=== PATIENT | female | born 1995 | race Hispanic/Latino ===

== ENCOUNTER 2018-01-03 13:13 | Inpatient (IN) | payer OTHER ==
[~2018-01-03] VITALS: Ht 170.2 cm; Wt 79.4 kg
[2018-01-03 13:50] LABS: ABSOLUTE BASOPHIL COUNT 0 /CUMM (0.0-0.2); ABSOLUTE EOSINOPHIL COUNT 0 /CUMM (0.0-0.7); ABSOLUTE GRANULOCYTE CT 11.1 /CUMM (1.4-6.5); ABSOLUTE LYMPH COUNT 1.5 /CUMM (1.2-3.4); ABSOLUTE MONOCYTE COUNT 0.6 /CUMM (0.10-0.60); BASOPHIL % 0.1 % (0.0-2.0); EOSINOPHIL % 0 % (0-5); HEMATOCRIT 35.3 % (37-47); MEAN CORPUSCULAR HGB 29.7 PG (27.0-31.0); MEAN CORPUSCULAR HGB CONC 34.2 G/DL (33.0-37.0); MEAN CORPUSCULAR VOLUME 86.9 FL (81.0-99.0); MEAN PLATELET VOLUME 8.5 FL (7.4-10.4); PLATELET COUNT 241 /CUMM (130-400); RBC DISTRIBUTION WIDTH 16.9 % (11.5-14.5); RED BLOOD CELL CT 4.06 /CUMM (4.20-5.40); WHITE BLOOD CELL COUNT 13.2 /CUMM (4.8-10.8)
[2018-01-03 13:51] VITALS: BP 137/94
--- NOTE | 2018-01-03 17:42 | History & Physical ---
General Information and HPI MD Statement: I have seen and personally examined ELIZABETH PICHARDO and documented this H&P. The patient is a 22 year old female at 41 weeks and 0 days gestation who presented with a chief complaint of Labor Pains. 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 Allergies/Medications Allergies: Coded Allergies: No Known Allergies (01/03/18) Compliance With Home Meds: GOOD Past History water analyst History : 1 Para: 0 Last Menstrual Period: 03/29/2017 Estimated Delivery Date: 12/27/2017 Past water analyst History: none Surgical History Pertinent Surgical History: none Past Family/Social History Psychosocial History Smoking Status: Never Smoked Review of Systems Review of Systems Constitutional: Reports: no symptoms. Denies: chills, fever. EENTM: Denies: blurred vision, double vision, visual changes. Cardiovascular: Denies: chest pain. Respiratory: Denies: cough. GI: Denies: nausea, vomiting. Neurological/Psychological: Denies: anxiety, depressed. Exam & Diagnostic Data Last 24 Hrs of Vital Signs/I&O vss Vital Signs Date Time Temp Pulse Resp B/P B/P Pulse O2 O2 Flow FiO2 Mean Ox Delivery Rate 01/03 1351 137/94 Intake & Output 01/03 1600 01/03 0800 05 0000 Intake Total Output Total Balance Patient 175 lb Weight Obstetric Exam Wgt Gained During : 28lbs Pelvimetry: seems adequate Dilation (cm): 5 Effacement (%): 90 Station: -2 Membranes: AROM Fluid: clear Fundal Height (cm): 38 Multiple Gestation? No Contractions: Q3-4 min Infant #1 - FHR Baseline: 144 Category: 1 Estimated Weight: 3800G Presentation: vtx Patient for Induction? No Physical Exam General Appearance Alert, Oriented X3, Cooperative, Moderate Distress Skin No Rashes HEENT Atraumatic Neck Supple Cardiovascular Regular Rate Lungs Clear to Auscultation Abdomen No Masses Neurological Normal Gait, Normal Speech Labs Blood Type & Rh: O POS Antibody Screen: neg Hct/Hgb & Platelets #1: 39.4/12.1/259 Hct/Hgb & Platelets #2: 32.6/9.9/242 Rubella: imm VDRL #1: nr VDRL #2: nr HbsAg: neg HIV #1: nr HIV #2 nr 1 Hr P Group B Strep: pos Initial Ultrasound: 09/12/17 9w 6d Anatomy Ultrasound: 08/08/2017 normal Ultrasound for EFW: 12/07/17 44%tile at 37 weeks Genetic Testing: cf negative cf DNA Normal Last 24 Hrs of Labs/Mathew: Laboratory Tests 01/03/18 1337: Urinalysis MOD H, Urine Color YEL, Urine Clarity CLDY H, Urine pH 6.0, Ur Specific [place] >= 1.030, Urine Protein 100 H, Urine Ketones >=80, Urine Nitrite NEG, Urine Bilirubin NEG, Urine Urobilinogen 0.2, Ur Leukocyte Esterase NEG, Ur Microscopic SEDIMENT EXAMINED, Urine RBC RARE, Urine WBC 5-10 H, Ur Epithelial Cells MANY H, Urine Bacteria MANY H, Urine Hemoglobin LARGE H, Urine Glucose NEG 01/03/18 1333: CBC w Diff NO MAN DIFF REQ, RBC 4.06 L, MCV 86.9, MCH 29.7, MCHC 34.2, RDW 16.9 H, MPV 8.5, Gran % 84.0 H, Lymphocytes % 11.1 L, Monocytes % 4.8, Eosinophils % 0, Basophils % 0.1, Absolute Granulocytes 11.1 H, Absolute Lymphocytes 1.5, Absolute Monocytes 0.6, Absolute Eosinophils 0, Absolute Basophils 0 Assessment/Plan Assessment/Plan: IUP at term active labor H/O HSV on Valtrex desires epidural As Ranked By This Provider Problem List: 1. Core Measures Venous Thromboembolism VTE Risk Factors / No Mechanical VTE Prophylaxis d/t LowRisk-No Interven Req'd No VTE Pharm Prophylaxis d/t LowRisk-No Interven Req'd Attending MD Review Statement Attending Statement Attending MD Statement: examined this patient, discussed with family, discussed w/nursing
--- NOTE | 2018-01-03 17:43 | PN- OBGYN ---
Surgical Brief Attending Note Brief Attending Note: After epidural placed at 4cm pt had a bradycardia resolved with position change AROM appears clear fluid scalp electrode placed.
--- NOTE | 2018-01-03 18:29 | PN- OBGYN ---
Surgical Brief Attending Note Brief Attending Note: Pt FHR is now not reassuring cat 2 and pt is still 5-6 cm with adequate contractions head -2 station plan is for primary c/s
--- NOTE | 2018-01-03 20:00 | Operative Report ---
Operative/Inv Procedure Report Surgery Date: 01/03/18 Name of Procedure: primary l/t c/s Pre-Operative Diagnosis: jeopardy Post-Operative Diagnosis: same Estimated Blood Loss: 600cc Surgeon/Fruit Grader: Abida MARIO,Jef Cano MD Anesthesia: block Drains: tobias Specimens: placenta Microbiology: placenta Complications: none Operative/Procedure Note Note: After topping off epidurall anesthesia the patient was placed in the left lateral tilt position Tobias catheter was placed and heart rate was noted to be 144 bpm after testing for adequacy of anesthesia a Pfannenstiel incision was made in the skin and carried down sharply to the fascia hemostasis was achieved with electrocautery. The Fascia was incised in the midline sharply and the incision was carried out laterally sharply. The fascia was divided from the underlying rectus muscles in the superior and inferior direction sharply. The rectus muscle bundles were divided in the midline sharply. A bladder flap was created on the lower uterine segment. The lower uterine segment was entered in the midline sharply and the incision was carried out laterally bluntly. was delivered through clear amnionic fluid vertex position atraumatically cord was doubly clamped and cut and the infant was handed to the pediatric attendant. The placenta was manually extracted and the interior of the uterus was wiped clean with wet laps. The uterus was externalized. The uterine incision was closed in 2 layers the first a running locking stitch the second an imbricating over the first 0 Polysorb sutures were used after checking for hemostasis the uterus was returned to its normal anatomic position the abdominal/perineal cavity was irrigated copiously once again the uterus was checked for hemostasis which was judged to be excellent. The parietal peritoneum was reapproximated in a simple running fashion with 0 Polysorb suture, subfascial planes were checked for hemostasis which was judged to be excellent. Fascia was then closed with 2 simple running sutures overlapping in the midline. Subcuticular tissues were irrigated copiously and hemostasis was achieved with electrocautery. A subcuticular Roland's fascia which was placed in a simple running fashion of 2-0 Polysorb. The skin was closed with messi. Her uterus was expressed of a small amount of blood. The only drain left at the end of the procedure was a Tobias catheter.
--- NOTE | 2018-01-04 00:01 | PN- OBGYN ---
Surgical Brief Attending Note Brief Attending Note: Pt spiked temp to 101.4 Lungs clear breasts soft no cvat fundus firm lochia serosanganous placental cultures done in OR will start on triple antibiotics, check CBC in AM.
[2018-01-04 08:35] LABS: ABSOLUTE BASOPHIL COUNT 0 /CUMM (0.0-0.2); ABSOLUTE EOSINOPHIL COUNT 0 /CUMM (0.0-0.7); ABSOLUTE GRANULOCYTE CT 8.7 /CUMM (1.4-6.5); ABSOLUTE LYMPH COUNT 1.6 /CUMM (1.2-3.4); ABSOLUTE MONOCYTE COUNT 1.1 /CUMM (0.10-0.60); BASOPHIL % 0.2 % (0.0-2.0); EOSINOPHIL % 0.1 % (0-5); GRANULOCYTE % 76.3 % (42.2-75.2); MEAN CORPUSCULAR HGB 29.1 PG (27.0-31.0); MEAN CORPUSCULAR HGB CONC 33.3 G/DL (33.0-37.0); MEAN CORPUSCULAR VOLUME 87.6 FL (81.0-99.0); MEAN PLATELET VOLUME 8.5 FL (7.4-10.4); PLATELET COUNT 181 /CUMM (130-400); WHITE BLOOD CELL COUNT 11.4 /CUMM (4.8-10.8)
--- NOTE | 2018-01-04 14:35 | PN- OBGYN ---
Surgical Brief Attending Note Brief Attending Note: pt feeling well. tobias just d/c'd. +neha po. no santizo / cp / sob. +bf. pain well controlled. Tllast 101 10p 01/03 - afeb since, v/ss nad abd soft mild fundal ttp, ff sabra mild lochia ext nt , scd's in place hct 35-->29 a/p pod 1 s/p c/s, on a/g/c for endometritis, clinically improving -enc oob / amb -cont abx until 24 hr afeb -cont routine pop care
--- NOTE | 2018-01-05 09:41 | PN- Post Delivery/GYN ---
Subjective Subjective: feeling better Review of Systems Constitutional: Denies: chills, diaphoresis, fever. EENTM: Denies: blurred vision, double vision, visual changes. Cardiovascular: Denies: chest pain. Respiratory: Denies: cough, short of breath. Gastrointestinal: Denies: diarrhea, nausea, vomiting. Musculoskeletal: Reports: neck pain. Skin: Reports: no symptoms. Neurological/Psychological: Denies: anxiety, depressed. Objective Last 24 Hrs of Vital Signs/I&O tmax 99.9 Physical Exam General Appearance Alert, Oriented X3, Cooperative, No Acute Distress Cardiovascular Regular Rate Lungs Clear to Auscultation Abdomen Soft, fundus firm incision clean and dry Pelvic (FEMALE) lochia serosanganous Current Medications: Current Medications Sig/Teressa Start time Last Medication Dose Route Stop Time Status Admin Acetaminophen 1,000 MG Q6P PRN 01/04 0015 AC 01/03 N/A 1 UNIT IV 2035 Acetaminophen 650 MG Q4P PRN 01/03 1945 AC PO Ampicillin 2,000 MG .STK-MED ONE 01/04 1809 DC IM 01/04 1810 Ampicillin 2,000 MG .STK-MED ONE 01/04 1208 DC IM 01/04 1209 Ampicillin 2,000 MG Q6 / 2359 AC 01/04 Sodium Chloride 100 ML IV 1815 Clindamycin 900 MG IQ8 01/04 0000 AC 01/04 Dextrose/Water 50 ML IV 1715 Diphenhydramine HCl 25 MG Q6P PRN 01/03 1945 AC 01/04 IV 0106 Docusate Sodium 100 MG .STK-MED ONE 01/05 2124 DC PO 01/04 212 Docusate Sodium 100 MG .STK-MED ONE 01/05 2124 DC PO 01/04 212 Gentamicin Sulfate 80 MG IQ8 01/04 0000 AC 01/04 Dextrose/Water 100 ML IV 1600 Hydromorphone HCl 50 MG Q24H PRN 01/03 2000 AC 01/03 Sodium Chloride 45 ML IV 2100 Hydroxyzine HCl 50 MG AT BEDTIME NEED.. 01/04 0000 AC PO Ibuprofen 800 MG .STK-MED ONE 01/05 2124 DC PO 01/04 212 Ibuprofen 800 MG .STK-MED ONE 01/05 2124 DC PO 01/04 212 Ibuprofen 800 MG .STK-MED ONE 01/04 1547 DC PO 01/04 1548 Ibuprofen 800 MG .STK-MED ONE 01/04 1547 DC PO 01/04 1548 Ibuprofen 800 MG Q6P PRN 01/03 1945 AC 01/05 PO 0610 Ketorolac 30 MG Q6-PRN PRN 01/04 0030 AC 01/04 Tromethamine IV 1040 Magnesium Hydroxide 30 ML DAILY NEEDED PRN 01/03 1945 AC PO Metoclopramide HCl 10 MG Q6P PRN 01/04 45 AC IV Oxycodone/ 1 TAB .STK-MED ONE 01/04 2011 DC Acetaminophen PO 01/05 2012 Oxycodone/ 1 TAB .STK-MED ONE 01/04 2011 DC Acetaminophen PO 01/05 2012 Oxycodone/ 1 TAB .STK-MED ONE 01/04 1547 DC Acetaminophen PO 01/04 1548 Oxycodone/ 1 TAB Q4P PRN 01/03 1945 AC 01/05 Acetamin[place] PO 0610 Oxycodone/ 2 TAB Q4P PRN 01/03 1945 AC Acetaminophen PO Last 24 Hrs of Labs/Mathew: wbc 11.4 H/H 9.6/29% Assessment/Plan Assessment/Plan POD #2 vss afebrile abx discontinued plan oob Problem List: 1. delivery delivered Attending Review Statement Attending Statement Attending Statement: examined this patient, discussed with nursing
--- NOTE | 2018-01-06 08:23 | PN- OBGYN ---
Surgical Brief Attending Note Brief Attending Note: POD#3 pt is resting in bed, no complaints. tolerate diet, void without difficulties, + BM PE: VSS CV RRR Lungs CTA B/L Abdomen: soft, nontender, uterus firm, fundus below umbilicus, incision messi in place, D/C/I, lochia mild Ext: DCT (-) A/P: 22 yo, s/p PLTCS, POD#3 1. encourage ambuialtion and 2. pain management as needed 3. will d/c home, f/u in office in 2 wks and 6 wks, discharge instructions given , she understand.
[2018-01-06] MEDS ORDERED: IBUPROFEN800 M1 PO (08:24)
[2018-01-06] MEDS ORDERED: PERCOCET 5-3251 EACH PO (08:24)
--- NOTE | 2018-01-16 09:41 | Surgical Discharge Summary ---
Visit Information Visit Dates Admission Date: 01/03/18 Discharge Date: 01/06/18 History of Present Illness Chief Complaint: Patient admitted to the hospital in labor Surgical History Pertinent Surgical History: none Psychosocial History What is Your Primary Language? Lao Review of Systems: Patient denies nausea, vomiting, diarrhea, constipation, fevers, or chills. Hospital Course Course Attending Physician: Abida MARIO,Curly Hector Primary Care Physician: Patient Has No Primary Care Dr Hospital Course: Patient was admitted in labor progressed to 5-6 cm again having decelerations which were not immediately able to change in position and oxygen administration of IV fluid administration she then spiked temperature to 101 antibiotics were started however in light of her not progressing and now a fever decision was made to go with a primary low transverse section which was undertaken without complications she was treated with IV antibiotics for 24 hours post op which were then discontinued she remained afebrile 48 hours was therefore discharged home on postoperative day #3 at that point she was tolerating a regular diet voiding well the incision was clean dry no erythema induration or tenderness Allergies: Coded Allergies: No Known Allergies (01/03/18) Disposition Summary Disposition Principal Diagnosis: Status post primary low transverse section Additional Diagnosis: Chorioamnionitis jeopardy failure to progress Discharge Disposition: home or self care Discharge Instructions General Discharge Information Code Status: Full Code Patient's Diet: Regular Patient's Activity: No heavy lifting and pelvic rest no driving Follow-Up Instructions/Appts: Call immediately for any fevers chills abdominal pain leaking from the wound or heavy vaginal bleeding. Call immediately for any headaches visual changes epigastric pain or shaking Medications at Discharge Discharge Medications: Start taking the following new medications: Ibuprofen (Ibuprofen) 800 MG TABLET 800 Milligram ORAL EVERY SIX HOURS NEEDED as needed for UTERINE CRAMPING Qty = 30 No Refills Comments: Last Taken:01/06/18 Time:621 Oxycodone HCl/Acetaminophen (Percocet 5-325 MG Tablet) 5 MG-325 MG TABLET 2 Tablet ORAL EVERY 4 HOURS NEEDED as needed for PAIN SCALE 7-10 (SEVERE) Qty = 30 No Refills Comments: Last Taken:01/06/18 Time:621 Attending Review Statement Attending Statement Attending MD Statement: examined this patient, discussed with family, discussed w/nursing
== END 2018-01-06 12:00 | DRG 540 ==
LOC: CBCO 13:13 → GNO 13:24
PROVIDERS: Obstetrics & Gynecology
PROC: 10D00Z1 Extraction of Products of Conception, Low, Open Approach (ICD-10-PCS; principal; 2018-01-03)
DX: O75.0 Maternal distress during labor and delivery (principal); Z3A.41 41 weeks gestation of pregnancy; Z37.0 Single live birth; O98.52 Other viral diseases complicating childbirth; B00.9 Herpesviral infection, unspecified
CPT/HCPCS: 87070; GNOP; GNOS; 81001; 87086; 88307; 96360; 96361; G0463; J0131; J0290; J0595; J0690; J1170; J1200; J1580; J1885; J2210; J7120